=== PATIENT | male | born 1965 | race Two or more races ===

== ENCOUNTER 2024-07-20 00:30 | Inpatient (IN) | payer OTHER ==
[~2024-07-20] VITALS: Ht 170.2 cm; Wt 102.6 kg
[2024-07-20 01:17] LABS: BASOPHILS % (AUTO) 1.1 % (0.0-2.0); EOSINOPHILS % (AUTO) 5.2 % (1.0-6.0); HEMATOCRIT 38.8 % (41-53); HEMOGLOBIN 13.1 g/dL (13.5-17.5); LYMPHOCYTES # (AUTO) 1.2 K/uL (1.0-4.8); LYMPHOCYTES % (AUTO) 33.6 % (22.0-44.0); MEAN CORPUSCULAR HEMOGLOBIN 26.1 pg (26.0-34.0); MEAN CORPUSCULAR HGB CONC 33.6 G/dL (31.0-37.0); MEAN CORPUSCULAR VOLUME 78 fL (80-100); MONOCYTES # (AUTO) 0.3 K/uL (0.1-1.0); MONOCYTES % (AUTO) 7.8 % (2.0-9.0); NEUTROPHILS # (AUTO) 1.9 K/uL (1.8-7.7); NEUTROPHILS % (AUTO) 52.3 % (40.0-70.0); PLATELET COUNT (AUTO) 118 K/uL (150-450); WHITE BLOOD COUNT (AUTO) 3.7 K/uL (4.5-11.0)
[2024-07-20 01:21] LABS: RBC MORPHOLOGY COMMENT ABNORMAL RBC MORPH
[2024-07-20 01:27] LABS: CALCIUM, TOTAL 8.3 mg/dL (8.8-10.5); CREATININE 1.28 mg/dL (0.60-1.30); POTASSIUM 3.5 mmol/L (3.5-5.1)
[2024-07-20] MEDS ORDERED: ALBUTEROL SULFATE 2.5 MG/0.5 ML NEB SOLUTION NEB PRN (01:30)
[2024-07-20] MEDS ORDERED: HYDROCODONE/ACETAMINOPHEN 5-325 MG TABLET PO PRN (01:30)
[2024-07-20] MEDS ORDERED: MORPHINE SULFATE 2 MG/ML SYRINGE IVP PRN ×2 (01:30→08:30)
[2024-07-20] MEDS ORDERED: ZOLPIDEM TARTRATE 10 MG TABLET PO PRN (01:30)
[2024-07-20] MEDS ORDERED: IPRATROPIUM BROMIDE 0.5 MG/2.5 ML NEB SOLUTION NEB PRN (01:30)
[2024-07-20] MEDS ORDERED: ACETAMINOPHEN 325 MG TABLET PO PRN ×2 (01:30→08:30)
[2024-07-20] MEDS ORDERED: ONDANSETRON HCL 4 MG/2 ML VIAL IVP PRN (01:30)
[2024-07-20] MEDS: DEXTROSE 5%-0.45% SODIUM CHL 1,000 ML IV SCH (01:30)
[2024-07-20 01:33] LABS: ALBUMIN 3.3 g/dL (3.4-5.0); BILIRUBIN,TOTAL 0.5 mg/dL (0.1-1.0)
[2024-07-20 04:25] VITALS: BP 144/92; PULSE 61; RESP 20; TEMP 97.8; O2SAT 99
[2024-07-20] MEDS ORDERED: INFLUENZA VIRUS VACCINE TVS (6MO+) 2024-25/PF 45 MCG/0.5 ML SYRINGE IM. ONE (05:15)
[2024-07-20 07:52] VITALS: BP 128/85; PULSE 56; RESP 18; TEMP 98; O2SAT 99
[2024-07-20] MEDS ORDERED: MAGNESIUM HYDROXIDE SUSPENSION 30 ML UDCUP PO PRN (08:30)
[2024-07-20] MEDS ORDERED: ZOLPIDEM TARTRATE 5 MG TABLET PO PRN (08:30)
[2024-07-20] MEDS: PANTOPRAZOLE SODIUM 40 MG/VIAL IVP SCH (08:47)
[2024-07-20] MEDS: DOCUSATE SODIUM 100 MG CAPSULE PO SCH (08:47)
[2024-07-20] MEDS: FAMOTIDINE 20 MG TABLET PO SCH (08:48)
[2024-07-20] MEDS ORDERED: SODIUM CHLORIDE 0.9% 100 ML ONE (10:54)
[2024-07-20] MEDS ORDERED: IOHEXOL 350 MG/ML 100 ML VIAL ONE (10:54)
[2024-07-20 15:24] VITALS: BP 141/89; PULSE 72; RESP 18; TEMP 98.2; O2SAT 97
[2024-07-20 17:27] LABS: APPEARANCE,URINE CLEAR (CLEAR); BILIRUBIN,URINE NEGATIVE (NEGATIVE); COLOR,URINE LIGHT YELLOW (YELLOW); GLUCOSE, URINE (UA) NEGATIVE (NEGATIVE); KETONES,URINE NEGATIVE (NEGATIVE); LEUKOCYTE ESTERASE ,URINE NEGATIVE (NEGATIVE); NITRATE,URINE NEGATIVE (NEGATIVE); OCCULT BLOOD,URINE NEGATIVE (NEGATIVE); PH,URINE 8.5 (5.0-8.0); PROTEIN,URINE TRACE mg/dL (NEGATIVE); UROBILINOGEN,URINE <=1.0 mg/dL (<=1.0)
[2024-07-20 19:42] VITALS: BP 138/81; PULSE 69; RESP 18; TEMP 98.5; O2SAT 98
[2024-07-21 07:52] VITALS: BP 146/107; PULSE 59; RESP 18; TEMP 98; O2SAT 97
[2024-07-21 15:23] VITALS: BP 129/91; PULSE 66; RESP 18; TEMP 98.3; O2SAT 96
== END 2024-07-21 17:16 | DRG 395 ==
LOC: EMS 00:33 → EDH 01:59 → 5S 03:04 → 6S 23:57
PROVIDERS: ADMIT Hospitalist; ATTEND Hospitalist
DX: K40.90 Unilateral inguinal hernia, without obstruction or gangrene, not specified as recurrent (principal); I10 Essential (primary) hypertension; K42.9 Umbilical hernia without obstruction or gangrene; E66.9 Obesity, unspecified; Z90.49 Acquired absence of other specified parts of digestive tract; Z68.35 Body mass index [BMI] 35.0-35.9, adult
CPT/HCPCS: 74177; 76881; 80053; 81003; 85025; 99285; C9113; J7050